=== PATIENT | female | born 1950 | race Caucasian/White ===

== ENCOUNTER → 2020-05-29 | Outpatient (CLI) | payer MEDICARE, MEDICAID ==
[~2020-05-29] MED LIST: ALBU0.63 NEB; ALBU8.5H7 IH; ALPR0.25 PO; ALPR0.5T PO; ALPR0.5T6 PO; AMOX1TAB63 PO; ASPI-485 PO; ASPI325T14 PO; ATOR40TA PO; AZIT250T14 PO; BENZ100C PO; BUDE0.5A NEB; BUDE10.2 IH; BUPR300T92 PO; CALC-26 PO; CETI10TA18 PO; CETI10TA77 PO; CHOL10002 PO; CHOL500016 PO; DIPH25CA57 PO; DONE5TAB14 PO; DONE5TAB53 PO; DULO30CA2 PO; DULO60CA7 PO; EPIN0.1S IJ; FLUO40CA9 PO; FLUT15.845 NS; FLUT1AER IH; FURO-81 PO; FURO20TA3 PO; GABA300C10 PO; GABA600T7 PO; GLIM2TAB7 PO; GLIP5TAB10 PO; GLUC100015 PO; HYDR-3097 PO; HYDR-3105 PO; INSU100I31 SQ; INSU200I4 SQ; IPRA4AER IH; Ipratropium/Albuterol Sulfate IH; LEVA0.6320 NEB; LEVA1.2543 IH; LEVO750T25 PO; LEVO75TA6 PO; LEVO88TA PO; LEVO88TA5 PO; LIRA0.6P SQ; LIRA0.6P2 SQ; LISI10TA2 PO; MAGN71.5 PO; MEMA1TAB PO; MEMA5TAB PO; METF500T27 PO; METH-3 PO; METO-236 PO; MIRT15TA3 PO; MIRT30TA4 PO; MIRT45TA PO; MONT10TA6 PO; NITR0.4T26 SL; OMEP20CA19 PO; OMEP20TA9 PO; OXCA300T3 PO; PHEN15CA2 PO; PIOG30TA67 PO; PRAZ1CAP2 PO; PRED20TA PO; PROM12.57 PO; SUMA50TA3 PO; TIZA4TAB2 PO; TOPI25TA52 PO; TOPI25TA8 PO; VENL150C PO; VITA0.4T2 PO; Venlafaxine Hcl PO; ZERTEC PO; [UNRECOGNIZED DRUG - CODE] PO; [UNRECOGNIZED DRUG - CODE] PO
--- NOTE | 2020-05-29 17:34 | DIREP ---
PROCEDURE:XRAY HUMERUS MIN 2 VWS-RT COMPARISON:None. INDICATIONS:M79.621 PAIN IN RIGHT UPPER ARM FINDINGS: Four views of the right humerus. No fracture or dislocation identified. No radiopaque foreign body. CONCLUSION: Right humerus, no fracture. Dictated by: Myla De Jesus MD on 05/29/2020 at 05:31 PM
== END | disposition home or self-care (01) ==
LOC: RAD 16:41
PROVIDERS: ATTEND Nurse Practitioner Adult Health
DX: M79.621 Pain in right upper arm (principal)
CPT/HCPCS: 73060-RT